=== PATIENT | female | born 1980 | race Caucasian/White ===

== ENCOUNTER 2017-02-23 11:10 | Emergency (ER) | payer SELFPAY ==
[2017-02-23 11:18] VITALS: BP 144/84; PULSE 66; TEMP 98.3; BMI 37.0
[2017-02-23] MEDS ORDERED: KETOROLAC TROMETHAMINE 60 MG/2 ML VIAL IM ONE (12:26)
[2017-02-23] MEDS ORDERED: KETOROLAC TROMETHAMINE 60 MG/2 ML VIAL ONE (12:35)
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
== END 2017-02-23 14:03 | disposition home or self-care (01) ==
LOC: JERFT 11:10
PROC: 3E0233Z Introduction of Anti-inflammatory into Muscle, Percutaneous Approach (ICD-10-PCS; principal; 2017-02-23)
DX: S20.20XA Contusion of thorax, unspecified, initial encounter (principal); S46.911A Strain of unspecified muscle, fascia and tendon at shoulder and upper arm level, right arm, initial encounter; S69.91XA Unspecified injury of right wrist, hand and finger(s), initial encounter; S16.1XXA Strain of muscle, fascia and tendon at neck level, initial encounter; Y04.2XXA Assault by strike against or bumped into by another person, initial encounter; Y07.03 Male partner, perpetrator of maltreatment and neglect; Y92.9 Unspecified place or not applicable; Y93.9 Activity, unspecified
CPT/HCPCS: 73030-TC-RT; 73130-TC-RT; 99281-25